=== PATIENT | female | born 1980 | race Caucasian/White ===

== ENCOUNTER 2018-02-20 05:00 | Emergency (ER) | payer BC, OTHER ==
[2018-02-20] MEDS ORDERED: EPINEPHrine HCL AMP 1 MG/ML AMP SUBCU ONE (05:16)
[2018-02-20] MEDS ORDERED: FAMOTIDINE 20 MG TAB PO ONE (05:17)
[2018-02-20] MEDS ORDERED: methylPREDNISolone SODIUM SUC 125 MG/2 ML VIAL IV ONE (05:17)
[2018-02-20] MEDS ORDERED: diphenhydrAMINE HCL 50 MG/ML VIAL IV ONE (05:17)
--- NOTE | 2018-02-20 05:19 | ED.PDOC ---
History of Present Illness - General Source: patient, RN notes reviewed Additional Information: 37 YEAR OLD WHITE FEMALE HERE FOR PERSISTENT URTICARIA RASH THAT HAS BEEN GETTING WORSE SHE HAS NO KNOWN ALLERGIES SHE HAS NO SHORTNESS OF BREATH NO DICCIUCLTY SWALLOWING SHE WAS SEEN AT PCP AND RECEIVED A SHOT OF STEROIDS AND A PRESCRIPTION FOR MEDROL DOSEPAK <Flash Crenshaw - Last Filed: 02/20/18 05:16> <Jorje Sutherland - Last Filed: 02/20/18 07:45> - General Chief Complaint: Allergic Reaction Stated Complaint: hives all over body - History of Present Illness Allergies/Adverse Reactions: Allergies Acetaminophen [From Darvocet-N] Allergy (Verified 04/25/12 08:58) Propoxyphene [From Darvocet-N] Allergy (Verified 04/25/12 08:58) Home Medications: Ambulatory Orders HYDROcodone 5MG/APAP 325MG [[place] 5/325] 1 ea PO PRN PRN #0 tab 04/26/12 Ibuprofen [Motrin] 600 mg PO PRN PRN #1 tab 04/26/12 Multivit-Min W/Fe-FA [] 1 tab PO DAILY #0 tab 04/26/12 Famotidine [Pepcid Tab] 20 mg PO BID #30 tab 02/20/18 Montelukast [Singulair] 10 mg PO DAILY #30 tab 02/20/18 Review of Systems - Review of Systems Constitutional: States: malaise EENTM: States: no symptoms reported Respiratory: States: no symptoms reported Cardiology: States: no symptoms reported Gastrointestinal/Abdominal: States: no symptoms reported Genitourinary: States: no symptoms reported Musculoskeletal: States: no symptoms reported Skin: States: see HPI Neurological: States: anxiety Endocrine: States: no symptoms reported All other Systems: No Change from Baseline <Jorje Sutherland - Last Filed: 02/20/18 07:45> Past Medical History (General) - Patient Medical History Hx Diabetes: No Hx Renal Disease: No Hx MRSA: Yes - Buttock 2007 MRSA Source:: Wound - Social History Hx Substance Use: No - Female History Hx Last Menstrual Period: 07/18/11 Expected Date of Delivery:: 04/29/12 <Flash Crenshaw - Last Filed: 02/20/18 05:16> Family Medical History - Family History Maternal Grandparents Hx Cardiac Disease: Yes Hx Family Diabetes: Yes Paternal Grandparents Hx Family Cancer: Yes <Jorje Sutherland - Last Filed: 02/20/18 07:45> Physical Exam - Physical Exam General Appearance: Alert, Comfortable, No apparent distress Eye Exam: bilateral normal Ears, Nose, Throat: hearing grossly normal, normal ENT inspection, normal pharynx Neck: full range of motion, supple Respiratory: lungs clear, normal breath sounds, no respiratory distress, no accessory muscle use Cardiovascular/Chest: normal peripheral pulses, regular rate, rhythm, no edema Peripheral Pulses: radial,right: 2+, radial,left: 2+, dorsalis pedis,right: 2+, dorsalis pedis,left: 2+ Gastrointestinal/Abdominal: non tender, soft Rectal Exam: deferred Back Exam: normal inspection, no CVA tenderness, no vertebral tenderness Extremity: normal range of motion, non-tender, normal inspection, no pedal edema , normal capillary refill Neurologic: mixer and scaler II-XII nml as tested, no motor/sensory deficits, alert, normal mood/affect, oriented x 3 Skin Exam: rash Comments: Vital Signs - 24 hr 02/20/18 02/20/18 05:14 06:50 Temperature 97.6 F 97.6 F Pulse Rate [ 75 94 H left] Respiratory 20 20 Rate Blood Pressure 118/81 100/60 [left] O2 Sat by Pulse 98 97 Oximetry <Jorje Sutherland - Last Filed: 02/20/18 07:45> Progress - Progress Progress: 02/20/18 07:40 the patient is a 37-year-old female presenting to the emergency room with what appears to be significant urticaria present for the last 3 days. It was preceded by what is most likely a viral upper respiratory tract infection. Source of the urticaria is not entirely sure. The patient has been on oral steroids. She has also been taking Benadryl at home. The patient received repeat dosings here along with some Pepcid and her rash has improved. The patient will be placed on Pepcid 20 mg twice daily for the next 2 weeks. She will also be placed on Singulair 10 mg daily for the next month. She needs to continue her Benadryl dosing every 6 hours at least for the next couple of days , and if she is doing well switch over to xyzal over the counter once daily for the next few weeks after that.. She needs to complete her course of steroids. She reports that she is scheduled to be set up with allergy testing, she will likely however have to be off of these medications before that can be done. No evidence of anaphylaxis. Vital signs are stable. I would recommend that she follow-up with her primary care doctor tomorrow before the weekend for repeat evaluation. ER warnings were given. - Results/Orders Results/Orders: Laboratory Results - last 24 hr 02/20/18 02/20/18 05:20 05:20 WBC 8.3 RBC 4.19 L Hgb 12.8 Hct 38.7 MCV 92.4 MCH 30.5 MCHC 33.0 RDW 12.3 Plt Count 367 MPV 8.7 Absolute Neuts (auto) 5.60 Absolute Lymphs (auto) 2.10 Absolute Monos (auto) 0.50 Absolute Eos (auto) 0.00 Absolute Basos (auto) 0.00 Neutrophils % 67.5 Lymphocytes % 25.7 Monocytes % 6.2 Eosinophils % 0.3 L Basophils % 0.3 Sodium 141 Potassium 3.4 L Chloride 107 Carbon Dioxide 26 Anion Gap 11.4 L BUN 10 Creatinine 0.60 BUN/Creatinine Ratio 16.7 Random Glucose 101 Serum Osmolality 280.4 Calcium 9.3 Total Bilirubin 0.3 AST 21 ALT 20 Alkaline Phosphatase 42 Serum Total Protein 7.0 Albumin 3.7 Globulin 3.3 Albumin/Globulin Ratio 1.1 <Jorje Sutherland - Last Filed: 02/20/18 07:45> Departure <Flash Crenshaw - Last Filed: 02/20/18 05:16> - Departure Diet: regular diet Activity: increase activity as tolerated <Jorje Sutherland - Last Filed: 02/20/18 07:45> - Departure Clinical Impression: Urticaria Disposition: Discharge to Home or Self Care Condition: Fair Departure Forms: ED Discharge - Pt. Copy, Patient Portal Self Enrollment Instructions: Donald (JOSEY) Referrals: Lisandro Sutherland MD [Primary Care Provider] - 1-2 Days Prescriptions: Famotidine [Pepcid Tab] 20 mg PO BID #30 tab Montelukast [Singulair] 10 mg PO DAILY #30 tab Home Medications: Ambulatory Orders HYDROcodone 5MG/APAP 325MG [[place] 5/325] 1 ea PO PRN PRN #0 tab 04/26/12 Ibuprofen [Motrin] 600 mg PO PRN PRN #1 tab 04/26/12 Multivit-Min W/Fe-FA [] 1 tab PO DAILY #0 tab 04/26/12 Famotidine [Pepcid Tab] 20 mg PO BID #30 tab 02/20/18 Montelukast [Singulair] 10 mg PO DAILY #30 tab 02/20/18 Additional Instructions: the patient is a 37-year-old female presenting to the emergency room with what appears to be significant urticaria present for the last 3 days. It was preceded by what is most likely a viral upper respiratory tract infection. Source of the urticaria is not entirely sure. The patient has been on oral steroids. She has also been taking Benadryl at home. The patient received repeat dosings here along with some Pepcid and her rash has improved. The patient will be placed on Pepcid 20 mg twice daily for the next 2 weeks. She will also be placed on Singulair 10 mg daily for the next month. She needs to continue her Benadryl dosing every 6 hours at least for the next couple of days , and if she is doing well switch over to xyzal over the counter once daily for the next few weeks after that.. She needs to complete her course of steroids. She reports that she is scheduled to be set up with allergy testing, she will likely however have to be off of these medications before that can be done. No evidence of anaphylaxis. Vital signs are stable. I would recommend that she follow-up with her primary care doctor tomorrow before the weekend for repeat evaluation. ER warnings were given.
[2018-02-20] MEDS ORDERED: SODIUM CHLORIDE 0.9% 1000ML 1,000 ML IVS ONE (05:20)
[2018-02-20 05:26] VITALS: TEMP 97.6
[2018-02-20] MEDS ORDERED: MONTELUKAST 10 MG TAB PO ONE (07:22)
[2018-02-20 07:59] VITALS: BP 101/65; O2SAT 96
== END 2018-02-20 07:56 | disposition home or self-care (01) ==
LOC: ER 05:00
DX: L50.9 Urticaria, unspecified (principal); Z88.6 Allergy status to analgesic agent
CPT/HCPCS: 36415; 80053; 85025; J1200; J2930; J7030

== ENCOUNTER 2019-11-24 10:58 | Emergency (ER) | payer OTHER ==
[2019-11-24] MEDS ORDERED: MORPHINE SULFATE INJ 10 MG/ML VIAL IM ONE (11:38)
[2019-11-24] MEDS ORDERED: SODIUM CHLORIDE 0.9% 1000ML 1,000 ML IVS ONE (12:18)
[2019-11-24] MEDS ORDERED: MORPHINE SULFATE INJ 10 MG/ML VIAL IV ONE (12:18)
[2019-11-24] MEDS ORDERED: cefTRIAXone SODIUM 1 GM in SODIUM CHL 0.9% 50ML MIN-BAG+ 50 ML IVPB ONE (14:04)
--- NOTE | 2019-11-24 14:08 | ED.PDOC ---
History of Present Illness - General Chief Complaint: Problem Time Seen by Provider: 11/24/19 11:18 Source: patient Exam Limitations: no limitations - History of Present Illness Initial Comments: 2D DYSURIA, URGENCY, FREQUENCY. TAKING AZO - NO RELIEF. STARTED A LEFTOVER CIPRO RX YESTERDAY, TOOK 2 DOSES. Quality: severe Onset Location: LLQ, suprapubic Radiation: none Activites at Onset: none Prior abdominal problems: none Improving Factors: nothing Worsening Factors: nothing Associated Symptoms: dysuria Allergies/Adverse Reactions: Allergies Acetaminophen [From Darvocet-N] Allergy (Verified 04/25/12 08:58) Propoxyphene [From Darvocet-N] Allergy (Verified 04/25/12 08:58) Home Medications: Ambulatory Orders ALPRAZolam [Xanax] 0.25 mg PO PRN 11/24/19 Escitalopram [Lexapro] 10 mg PO DAILY 11/24/19 Sulfa/Trimeth 800/160 (Ds) Tab [Bactrim DS Tab] 1 unit PO BID #14 tab 11/24/19 Review of Systems - Review of Systems Constitutional: Denies: chills, fever EENTM: States: no symptoms reported Respiratory: States: no symptoms reported Cardiology: States: no symptoms reported Gastrointestinal/Abdominal: Denies: diarrhea, nausea, vomiting Genitourinary: States: dysuria, frequency Musculoskeletal: Denies: back pain Skin: States: no symptoms reported Neurological: States: no symptoms reported Endocrine: States: no symptoms reported Hematologic/Lymphatic: States: no symptoms reported All other Systems: Reviewed and Negative Past Medical History (General) - Patient Medical History Hx Seizures: No Hx Dementia: No Hx Asthma: No Hx of COPD: No Hx Cardiac Disorders: No Hx Congestive Heart Failure: No Hx Pacemaker: No Hx Hypertension: No Hx Diabetes: No Hx Gastroesophageal Reflux: No Hx Renal Disease: No Hx [facility]: [facility] MRSA Source:: Wound Surgical History: other - Vaccination History Hx Tetanus, Diphtheria Vaccination: No Hx Influenza Vaccination: No Hx Pneumococcal Vaccination: No - Social History Hx Alcohol Use: Yes - occ Hx Substance Use: No Hx Depression: Yes - Female History Patient is a Female of Child Bearing Age (10 -59 yrs old): Yes Hx Last Menstrual Period: 07/18/11 Expected Date of Delivery:: 04/29/12 Family Medical History - Family History Maternal Grandparents Hx Cardiac Disease: Yes Hx Family Diabetes: Yes Paternal Grandparents Hx Family Diabetes: Yes Hx Family Cancer: Yes Physical Exam - Physical Exam General Appearance: Alert, Well Nourished Eyes, Ears, Nose, Throat Exam: PERRL/EOMI, normal ENT inspection Neck: non-tender, full range of motion Cardiovascular/Respiratory: regular rate, rhythm, normal peripheral pulses Gastrointestinal/Abdominal: normal bowel sounds, soft, no organomegaly, no pulsatile mass, other - SPURAPUBIC AND LLQ TTP. Back Exam: normal inspection, no CVA tenderness Extremity: normal range of motion, normal inspection Neurologic: no motor/sensory deficits, normal mood/affect Skin Exam: normal color, warm/dry Lymphatic: no adenopathy Progress - Results/Orders Results/Orders: UTI (UA POS NITRITE, LEUK EST, WBC, BACTERIA, RBC, BLOOD) AND MILD LEUKOCYTOSIS, THUS 7 D BACTRIM INSTEAD OF 3. ROCEPHIN X 1. KETONES IN UA THUS MILD DEHYDRATION - NS BOLUS. CMP NEG. HCG NEG. NO PYELONEPHRITIS (NO FEVERS, CHILLS, FLANK PAIN). SAFE FOR OUTPT TX. Departure - Departure Clinical Impression: Neutrophilic leukocytosis, Dysuria, Mild dehydration Urinary tract infection Qualifiers: Urinary tract infection type: acute cystitis Hematuria presence: with hematuria Qualified Code(s): N30.01 - Acute cystitis with hematuria Disposition: Discharge to Home or Self Care Condition: Good Departure Forms: ED Discharge - Pt. Copy, Patient Portal Self Enrollment Diet: resume usual diet Activity: increase activity as tolerated Referrals: Lisandro Sutherland MD [Primary Care Provider] - 1-2 Weeks Prescriptions: Sulfa/Trimeth 800/160 (Ds) Tab [Bactrim DS Tab] 1 unit PO BID #14 tab Home Medications: Ambulatory Orders ALPRAZolam [Xanax] 0.25 mg PO PRN 11/24/19 Escitalopram [Lexapro] 10 mg PO DAILY 11/24/19 Sulfa/Trimeth 800/160 (Ds) Tab [Bactrim DS Tab] 1 unit PO BID #14 tab 11/24/19
[2019-11-24 14:34] VITALS: O2SAT 96
[2019-11-24 14:55] VITALS: BP 100/62; TEMP 97.8
== END 2019-11-24 14:55 | disposition home or self-care (01) ==
LOC: ER 10:58
DX: N30.01 Acute cystitis with hematuria (principal); E86.0 Dehydration; D72.828 Other elevated white blood cell count; F32.9 Major depressive disorder, single episode, unspecified; Z79.899 Other long term (current) drug therapy; Z88.6 Allergy status to analgesic agent; Z88.5 Allergy status to narcotic agent
CPT/HCPCS: 80053; 81001; 81025; 85025; 87086; 87088; 87186; J0696; J2270; J7030; J7050